=== PATIENT | male | born 1970 | race Caucasian/White ===

== ENCOUNTER 2019-12-17 07:12 | Emergency (ER) | payer MEDICAID, OTHER ==
[~2019-12-17] VITALS: Ht 182.9 cm; Wt 107.1 kg
[2019-12-17 07:24] VITALS: BP 123/78
== END 2019-12-17 09:59 | disposition home or self-care (01) ==
LOC: ED 09:48
DX: S01.01XA Laceration without foreign body of scalp, initial encounter (principal); X58.XXXA Exposure to other specified factors, initial encounter; Y93.89 Activity, other specified; Y92.89 Other specified places as the place of occurrence of the external cause; Y99.0 Civilian activity done for income or pay
CPT/HCPCS: 12001; 12011; 99283

== ENCOUNTER 2020-02-15 05:04 | Emergency (ER) | payer MEDICAID, OTHER ==
[~2020-02-15] VITALS: Ht 182.9 cm; Wt 107.2 kg
[2020-02-15 05:06] VITALS: BP 139/74
[2020-02-15] MEDS ORDERED: LIDOCAINE 1%-EPI 1:100K, 20ML ONE (05:36)
[2020-02-15] MEDS ORDERED: LIDOCAINE 1%-EPI 1:100K, 20ML SQ ONE (06:00)
== END 2020-02-15 06:31 | disposition home or self-care (01) ==
LOC: ED 06:29
DX: L02.412 Cutaneous abscess of left axilla (principal)
CPT/HCPCS: 10060; 99281; 99282

== ENCOUNTER 2020-02-18 13:04 | Emergency (ER) | payer MEDICAID ==
[~2020-02-18] VITALS: Ht 182.9 cm; Wt 108.1 kg
[2020-02-18 14:03] VITALS: BP 126/83
== END 2020-02-18 15:02 | disposition home or self-care (01) ==
LOC: ED 13:41
DX: Z48.01 Encounter for change or removal of surgical wound dressing (principal); I10 Essential (primary) hypertension; K21.9 Gastro-esophageal reflux disease without esophagitis; J45.909 Unspecified asthma, uncomplicated; M10.9 Gout, unspecified; Z90.89 Acquired absence of other organs; Z87.891 Personal history of nicotine dependence
CPT/HCPCS: 99282

== ENCOUNTER 2020-04-02 10:10 | Emergency (ER) | payer MEDICAID, OTHER ==
[~2020-04-02] VITALS: Ht 182.9 cm; Wt 102.9 kg
--- NOTE | 2020-04-02 10:39 | NUR ---
PT CAME IN CO OF [place] X 4 DAYS. PT DENIES ALL OTHER SYMPTOMS. "ITS REALLY JUST THE RELENTLESS DI[place]HEA". PT STATES HE DOESNT REMEMBER EATING ANYTHING BAD. PT UNABLE TO PROVIDE STOOL SAMPLE AT THIS TIME. PT IS RESTING IN [facility]. IS BEDSIDE FOR ASSESSMENT
[2020-04-02] MEDS ORDERED: SODIUM CHLORIDE 0.9% 1,000ML IVBOLUS ONE (11:00)
[2020-04-02 11:02] LABS: BASOPHILS # (AUTO) 0.03 x10^3/uL (0-0.1); BASOPHILS % (AUTO) 0 % (0-1); EOSINOPHILS # (AUTO) 0.03 x10^3/uL (0-0.4); EOSINOPHILS % (AUTO) 0 % (1-7); LYMPHOCYTES # (AUTO) 1.56 x10^3/uL (1-3.4); LYMPHOCYTES % (AUTO) 17 % (22-44); MD NO; MEAN CORPUSCULAR HEMOGLOBIN 31.6 pg (27.5-34.5); MEAN CORPUSCULAR HGB CONC 33.8 g/dL (33.2-36.2); MEAN CORPUSCULAR VOLUME 93.4 fL (81-97); MEAN PLATELET VOLUME 7.8 fL (7.4-10.4); MONOCYTES % (AUTO) 10 % (2-9); NEUTROPHILS # (AUTO) 6.95 x10^3/uL (1.8-6.8); NEUTROPHILS % (AUTO) 73 % (42-75); PLATELET COUNT 265 x10^3/uL (130-400); RED CELL DISTRIBUTION WIDTH 13.2 % (9.4-14.8)
[2020-04-02 11:13] LABS: ALANINE AMINOTRANSFERASE 51 U/L (12-78); ALBUMIN 3.5 g/dL (3.4-5.0); ANION GAP 6 mmol/L (5-15); CALCIUM 8.8 mg/dL (8.5-10.1); CHLORIDE 109 mmol/L (98-107)
[2020-04-02 11:15] LABS: ALKALINE PHOSPHATASE 74 U/L (45-117); BILIRUBIN,TOTAL 0.8 mg/dL (0.2-1.0); TOTAL PROTEIN 7.3 g/dL (6.4-8.2)
[2020-04-02 11:30] VITALS: BP 121/81
--- NOTE | 2020-04-02 11:31 | NUR ---
PT RESTING IN [facility]. NAD. VSS. "IM JUST DOZING OFF"
== END 2020-04-02 12:30 | disposition home or self-care (01) ==
LOC: ED 10:39
DX: R19.7 Diarrhea, unspecified (principal); R10.13 Epigastric pain; I10 Essential (primary) hypertension; K21.9 Gastro-esophageal reflux disease without esophagitis; J45.909 Unspecified asthma, uncomplicated; M10.9 Gout, unspecified; Z87.891 Personal history of nicotine dependence
CPT/HCPCS: 36415; 80053; 85025; 99283; J7030

== ENCOUNTER → 2020-04-02 | Outpatient (CLI) | payer OTHER | END | disposition home or self-care (01) | LOC: LAB 16:55 | PROVIDERS: ATTEND Student in an Organized Health Care Education/Training Program | DX: R19.7 Diarrhea, unspecified (principal) | CPT/HCPCS: 87177; 87209; 89055 ==

== ENCOUNTER 2020-05-03 08:23 | Inpatient (IN) | payer OTHER ==
[~2020-05-03] VITALS: Ht 182.9 cm; Wt 104.9 kg
--- NOTE | 2020-05-03 08:44 | NUR ---
DR DRISCOLL AT BEDSIDE PT GIVEN 324 ASA PER VERBAL
--- NOTE | 2020-05-03 08:51 | NUR ---
0848 CODE CARDIAC CALLED 0849 CARDIOLOGY PAGED
[2020-05-03] MEDS ORDERED: ASPIRIN 325 MG TABLET PO STA (08:53)
[2020-05-03] MEDS ORDERED: ONDANSETRON 2MG/ML, 2ML ONE (08:53)
[2020-05-03 08:59] LABS: MEAN CORPUSCULAR HEMOGLOBIN 30.6 pg (27.5-34.5); MEAN CORPUSCULAR HGB CONC 32.1 g/dL (33.2-36.2); MEAN CORPUSCULAR VOLUME 95.2 fL (81-97); MEAN PLATELET VOLUME 7.5 fL (7.4-10.4); PLATELET COUNT 283 x10^3/uL (130-400); RED BLOOD COUNT 5.93 x10^6/uL (4.38-5.82); RED CELL DISTRIBUTION WIDTH 12.8 % (9.4-14.8)
[2020-05-03] MEDS ORDERED: MORPHINE SULFATE 4 MG/ML, 1ML ONE ×2 (09:01→09:14)
--- NOTE | 2020-05-03 09:01 | NUR ---
850 skilled laborer called in and on the way 756 dr kline spoke with dr escalona.
[2020-05-03] MEDS: MORPHINE SULFATE 4 MG/ML, 1ML IVPush PRN ×2 (09:03→09:20)
--- NOTE | 2020-05-03 09:03 | NUR ---
DIAPHORETIC AND C?O NAUSEA. MEDICATED WITH ZOFRAN 4 MG IV
--- NOTE | 2020-05-03 09:05 | NUR ---
PT STATES CP DOWN RIGHT ARM STARTED YESTERDAY. THIS MORNING 3 AM PAIN DEVELOPING IN SHOULDERS. PT STATES THAT HE HAS HAD A RELAPSE IN USING METH RECENTLY.
--- NOTE | 2020-05-03 09:06 | NUR ---
CONTINUES TO HAVE SHOULDER PAIN AND MEDICATED WITH MORPHINE PER ORDERS AT 0844 Addendum: 05/03/20 at 0907 by RC MEDICATED AT 0855 WITH MORPHINE
[2020-05-03 09:11] LABS: INTERNATIONAL NORMALIZED RATIO 1.05 (0.93-1.1); PROTHROMBIN TIME 11.1 Seconds (9.6-11.5)
--- NOTE | 2020-05-03 09:20 | NUR ---
MEDICATED PER ORDERS WITH 4 MG MORPHINE IV
[2020-05-03 09:25] LABS: BASOPHILS # (AUTO) 0.04 x10^3/uL (0-0.1); BASOPHILS % (AUTO) 0 % (0-1); EOSINOPHILS # (AUTO) 0.01 x10^3/uL (0-0.4); EOSINOPHILS % (AUTO) 0 % (1-7); LYMPHOCYTES # (AUTO) 2.59 x10^3/uL (1-3.4); LYMPHOCYTES % (AUTO) 10 % (22-44); MD SCAN; MONOCYTES # (AUTO) 2.14 x10^3/uL (0.2-0.8); MONOCYTES % (AUTO) 8 % (2-9); NEUTROPHILS # (AUTO) 22.07 x10^3/uL (1.8-6.8); NEUTROPHILS % (AUTO) 82 % (42-75)
--- NOTE | 2020-05-03 09:25 | NUR ---
PAIN IMPROVED AFTER MORPHINE GIVEN. NO LONGER DIAPHORETIC.
[2020-05-03] MEDS ORDERED: MIDAZOLAM 1 MG/ML, 5ML ONE (09:27)
[2020-05-03] MEDS ORDERED: BIVALIRUDIN 250 MG ONE (09:28)
[2020-05-03] MEDS ORDERED: FENTANYL PF 100 MCG/2ML ONE (09:28)
[2020-05-03] MEDS ORDERED: TICAGRELOR 90 MG TABLET ONE (09:28)
[2020-05-03] MEDS ORDERED: HEPARIN 1,000 UNITS/ML, 10ML ONE (09:28)
[2020-05-03] MEDS ORDERED: LIDOCAINE-MPF 1%, 5ML ONE (09:28)
[2020-05-03] MEDS ORDERED: VERAPAMIL 2.5 MG/ML, 2ML ONE (09:28)
[2020-05-03] MEDS ORDERED: MORPHINE SULFATE 4 MG/ML, 1ML IVPush PRN (09:30)
[2020-05-03] MEDS ORDERED: ONDANSETRON 2MG/ML, 2ML IVPush ONE (09:30)
[2020-05-03] MEDS ORDERED: ASPIRIN 81 MG TABLET CHEW ONE (09:42)
[2020-05-03] MEDS ORDERED: ADENOSINE 6 MG/2 ML ONE (10:08)
[2020-05-03] MEDS ORDERED: BIVALIRUDIN 250 MG in SODIUM CHLORIDE 0.9% 50 ML IV SCH (10:23)
[2020-05-03] MEDS ORDERED: ASPIRIN 325 MG TABLET EC ONE (10:25)
[2020-05-03] MEDS ORDERED: ZOLPIDEM 5MG TABLET PO PRN (10:30)
[2020-05-03] MEDS ORDERED: ONDANSETRON 2MG/ML, 2ML IVPush PRN (10:30)
[2020-05-03] MEDS: SODIUM CHLORIDE 0.9% 1,000 ML IV SCH ×3 (11:14→19:18)
[2020-05-03] MEDS: ACETAMINOPHEN 325 MG TABLET PO PRN (13:55)
[2020-05-03 15:23] VITALS: BP 118/82
[2020-05-03] MEDS: METOPROLOL TARTRATE 25 MG TAB PO SCH (17:51)
[2020-05-03] MEDS ORDERED: ENALAPRIL 5MG TABLET ONE (20:16)
[2020-05-03] MEDS: ATORVASTATIN 80 MG TABLET PO SCH (20:19)
[2020-05-03] MEDS: TICAGRELOR 90 MG TABLET PO SCH (20:19)
[2020-05-03] MEDS: ENALAPRIL 2.5MG TABLET PO SCH (20:20)
[2020-05-03] MEDS ORDERED: EMTR1TAB14 PO (21:14)
[2020-05-03] MEDS ORDERED: LISI5TAB7 PO (21:14)
[2020-05-03] MEDS ORDERED: OMEP40CA42 PO (21:14)
[2020-05-03] MEDS ORDERED: CLIN300C8 PO (21:14)
[2020-05-03] MEDS ORDERED: DILT180C76 PO (21:14)
[2020-05-03] MEDS ORDERED: ALLO100T30 PO (21:14)
[2020-05-03] MEDS ORDERED: DOLU50TA PO (21:14)
[2020-05-04 04:27] VITALS: BP 104/74
[2020-05-04 04:27] LABS: ANION GAP 8 mmol/L (5-15); CALCIUM 8.7 mg/dL (8.5-10.1); CHLORIDE 105 mmol/L (98-107); CREATININE 0.96 mg/dL (0.7-1.3)
[2020-05-04] MEDS: METOPROLOL TARTRATE 25 MG TAB PO SCH ×2 (04:30→16:34)
[2020-05-04] MEDS ORDERED: ENALAPRIL 5MG TABLET ONE (08:13)
[2020-05-04] MEDS: TICAGRELOR 90 MG TABLET PO SCH ×2 (08:26→19:54)
[2020-05-04] MEDS: ASPIRIN 81 MG TABLET EC PO SCH (08:26)
[2020-05-04] MEDS: SODIUM CHLORIDE 0.9% 1,000 ML IV SCH ×3 (08:27→19:13)
[2020-05-04] MEDS: ACETAMINOPHEN 325 MG TABLET PO PRN ×2 (08:44→16:38)
[2020-05-04] MEDS: ENALAPRIL 2.5MG TABLET PO SCH (08:44)
[2020-05-04] MEDS ORDERED: EMTRICITABINE/TENOFOV ALAFENAM 200-25 TAB PO SCH (09:00)
[2020-05-04] MEDS ORDERED: DOLUTEGRAVIR 50MG TAB PO SCH (09:00)
[2020-05-04] MEDS: EMTRICITABINE/TENOFOV ALAFENAM 200-25 TAB HOMEMEDPO SCH (10:53)
[2020-05-04] MEDS: DOLUTEGRAVIR 50MG TAB HOMEMEDPO SCH (10:53)
[2020-05-04] MEDS: LISINOPRIL 5 MG TABLET PO SCH (11:40)
[2020-05-04] MEDS: ALLOPURINOL 100 MG TABLET PO SCH (11:40)
[2020-05-04] MEDS: CLINDAMYCIN 300 MG CAPSULE PO SCH ×3 (11:40→19:54)
[2020-05-04 12:30] VITALS: BP 118/84
[2020-05-04] MEDS: ATORVASTATIN 80 MG TABLET PO SCH (19:54)
[2020-05-04 19:57] VITALS: BP 95/64
[2020-05-05 04:18] VITALS: BP 97/61
[2020-05-05] MEDS: OMEPRAZOLE 20 MG CAPSULE.DR PO SCH (04:23)
[2020-05-05] MEDS: METOPROLOL TARTRATE 25 MG TAB PO SCH (04:23)
[2020-05-05] MEDS: ACETAMINOPHEN 325 MG TABLET PO PRN ×2 (04:23→22:35)
[2020-05-05 07:38] VITALS: BP 98/59
[2020-05-05] MEDS: CLINDAMYCIN 300 MG CAPSULE PO SCH ×3 (09:00→20:30)
[2020-05-05] MEDS: LISINOPRIL 5 MG TABLET PO SCH (09:00)
[2020-05-05] MEDS: DOLUTEGRAVIR 50MG TAB HOMEMEDPO SCH (09:00)
[2020-05-05] MEDS: ALLOPURINOL 100 MG TABLET PO SCH (09:00)
[2020-05-05] MEDS: ASPIRIN 81 MG TABLET EC PO SCH (09:00)
[2020-05-05] MEDS ORDERED: DOLUTEGRAVIR 50MG TAB PO SCH (09:00)
[2020-05-05] MEDS ORDERED: EMTRICITABINE/TENOFOV ALAFENAM 200-25 TAB PO SCH (09:00)
[2020-05-05] MEDS: EMTRICITABINE/TENOFOV ALAFENAM 200-25 TAB HOMEMEDPO SCH (09:00)
[2020-05-05] MEDS: SODIUM CHLORIDE 0.9% 1,000 ML IV SCH (09:00)
[2020-05-05] MEDS: TICAGRELOR 90 MG TABLET PO SCH ×2 (09:00→20:30)
[2020-05-05 12:53] VITALS: BP 112/74
[2020-05-05 20:15] VITALS: BP 117/80
[2020-05-05] MEDS: ATORVASTATIN 80 MG TABLET PO SCH (20:30)
[2020-05-05] MEDS ORDERED: METOPROLOL SUCCINATE 25 MG TAB.ER.24H PO SCH (21:00)
[2020-05-06 00:26] VITALS: BP 111/77
[2020-05-06] MEDS: OMEPRAZOLE 20 MG CAPSULE.DR PO SCH (06:17)
[2020-05-06 08:39] VITALS: BP 116/84
[2020-05-06] MEDS: CLINDAMYCIN 300 MG CAPSULE PO SCH (08:55)
[2020-05-06] MEDS: TICAGRELOR 90 MG TABLET PO SCH (08:55)
[2020-05-06] MEDS: ALLOPURINOL 100 MG TABLET PO SCH (08:55)
[2020-05-06] MEDS: ASPIRIN 81 MG TABLET EC PO SCH (08:55)
[2020-05-06] MEDS: EMTRICITABINE/TENOFOV ALAFENAM 200-25 TAB HOMEMEDPO SCH (08:58)
[2020-05-06] MEDS: DOLUTEGRAVIR 50MG TAB HOMEMEDPO SCH (08:58)
[2020-05-06] MEDS ORDERED: LISINOPRIL 5 MG TABLET PO SCH (09:00)
[2020-05-06] MEDS ORDERED: LISI5TAB7 PO (11:23)
[2020-05-06] MEDS ORDERED: TICA90TA PO (11:23)
[2020-05-06] MEDS ORDERED: ATOR-2 PO (11:23)
[2020-05-06] MEDS ORDERED: METO25TA91 PO (11:23)
[2020-05-06] MEDS ORDERED: ASPI81TA45 PO (11:23)
[2020-05-06 12:12] VITALS: BP 113/82
== END 2020-05-06 14:28 | disposition home or self-care (01) | DRG 246 ==
LOC: ED 09:57 → EDIP 10:00 → CCU 10:44 → 5SO 05-04 12:08 → DCLOUNGE 05-06 14:20
PROVIDERS: ADMIT Internal Medicine Cardiovascular Disease; ATTEND Hospitalist
PROC: 027035Z Dilation of Coronary Artery, One Artery with Two Drug-eluting Intraluminal Devices, Percutaneous Approach (ICD-10-PCS; principal; 2020-05-03)
PROC: 02C03ZZ Extirpation of Matter from Coronary Artery, One Artery, Percutaneous Approach (ICD-10-PCS; 2020-05-03)
PROC: 4A023N7 Measurement of Cardiac Sampling and Pressure, Left Heart, Percutaneous Approach (ICD-10-PCS; 2020-05-03)
PROC: B2111ZZ Fluoroscopy of Multiple Coronary Arteries using Low Osmolar Contrast (ICD-10-PCS; 2020-05-03)
PROC: B2151ZZ Fluoroscopy of Left Heart using Low Osmolar Contrast (ICD-10-PCS; 2020-05-03)
DX: I21.09 ST elevation (STEMI) myocardial infarction involving other coronary artery of anterior wall (principal); I50.31 Acute diastolic (congestive) heart failure; Z20.828 Contact with and (suspected) exposure to other viral communicable diseases; E78.5 Hyperlipidemia, unspecified; F15.90 Other stimulant use, unspecified, uncomplicated; F17.210 Nicotine dependence, cigarettes, uncomplicated; I11.0 Hypertensive heart disease with heart failure; I25.10 Atherosclerotic heart disease of native coronary artery without angina pectoris; I25.5 Ischemic cardiomyopathy; I45.10 Unspecified right bundle-branch block; M10.9 Gout, unspecified; J45.909 Unspecified asthma, uncomplicated; K21.9 Gastro-esophageal reflux disease without esophagitis; Z21 Asymptomatic human immunodeficiency virus [HIV] infection status; Z56.0 Unemployment, unspecified; Z95.5 Presence of coronary angioplasty implant and graft; I25.2 Old myocardial infarction; Z90.49 Acquired absence of other specified parts of digestive tract; Z79.899 Other long term (current) drug therapy
CPT/HCPCS: 36415; 71045; 80047; 80048; 84484; 85025; 85610; 85730; 87081; 87635; 92973; 93005; 93306; 93458; 96374; 99156; 99157; 99285; C1760; C1769; C1894; G0378; J0153; J0583; J1644; J2250; J2405; J3010; C1725; C1757; C1874; C1887; J2270; J7030; Q9967